=== PATIENT | male | born 1975 | race Caucasian/White ===

== ENCOUNTER 2020-07-22 09:57 | Emergency (ER) | payer OTHER ==
[~2020-07-22] VITALS: Ht 167.6 cm; Wt 86.4 kg
[2020-07-22 10:06] VITALS: Ht 167.6 cm; Wt 86.4 kg
[2020-07-22] MEDS ORDERED: METOPROLOL TART50 MG (10:10)
[2020-07-22 11:08] LABS: BASOPHILS 0.3 % (0-2); EOSINOPHILS 0.8 % (0-7); HEMOGLOBIN 16.6 g/dL (13.5-17.5); IMMATURE GRANULOCYTES 0.5 % (0-5); LYMPHOCYTE ABS# 1.78 10x3/uL (1.32-3.57); LYMPHOCYTES 28.3 % (15-50); MCH 31.3 pg (26.0-34.0); MCHC 36.1 g/dL (31.0-37.0); MCV 86.8 fL (80.0-100.0); NEUTROPHIL ABS# 3.97 10x3/uL (1.78-5.38); NEUTROPHILS 63.1 % (40-80); PLATELET COUNT 201 10x3/uL (130-400); RDW 12.3 % (11.5-14.5); WBC 6.3 10x3/uL (4.8-10.8)
[2020-07-22 11:15] LABS: CALC OSMOLALITY 266 mosm/kg (275-300); CALCIUM 9.2 mg/dL (8.5-10.1); CARBON DIOXIDE 24.1 mmol/L (21.0-32.0); CHLORIDE - SERUM 101 mmol/L (98-107); GLUCOSE 106 mg/dL (74-106); POTASSIUM - SERUM 3.9 mmol/L (3.5-5.1); SODIUM 133 mmol/L (136-145); UREA NITROGEN 14 mg/dL (7-18); eGFR NON AFRICAN AMERICAN 86 mL/min (90-120)
[2020-07-22 11:22] LABS: INR 1.12 (0.85-1.17); PROTIME 13.4 SECONDS (11.6-15.0)
[2020-07-22 11:32] LABS: ALBUMIN 4.2 g/dL (3.4-5.0); ALKALINE PHOSPHATASE 82 U/L (30-120); ALT (SGPT) 42 U/L (10-68); CKMB 0.4 U/L (0.0-3.6); CREATINE KINASE 103 UL (21-232); PROTEIN - SERUM 8.2 g/dL (6.4-8.2); TROPONIN-I < 0.017 ng/mL (0.000-0.060)
[2020-07-22 11:40] LABS: D-DIMER-QUANTITATIVE 2.65 ug/mLFEU (0.20-0.54)
[2020-07-22 11:53] LABS: SARS-CoV-2 ANTIGEN NEGATIVE- SARS-COV-2 (NEGATIVE)
[2020-07-22] MEDS ORDERED: ZOFRAN ODT4 MG/UDTAB PO (14:37)
[2020-07-22] MEDS ORDERED: LOMOTIL 2.5-0.1 EAC1 PO (14:37)
[2020-07-22 14:51] VITALS: BP 124/62
== END 2020-07-22 14:51 | disposition home or self-care (01) ==
LOC: D.ER 09:57
PROVIDERS: Family Medicine
DX: R11.2 Nausea with vomiting, unspecified (principal); Z20.822 Contact with and (suspected) exposure to COVID-19; R05 Cough; I10 Essential (primary) hypertension